=== PATIENT | female | born 1980 | race Caucasian/White ===

== ENCOUNTER 2019-12-08 06:35 | Day surgery (SDC) | payer OTHER ==
[~2019-12-08] VITALS: Ht 167.6 cm; Wt 67.0 kg
[2019-12-08 07:10] VITALS: BP 108/74
[2019-12-08] MEDS ORDERED: CHLORHEXIDINE 15 ML UDC MM STA (07:17)
[2019-12-08] MEDS ORDERED: LACTATED RINGERS 1,000 ML IV SCH (07:18)
[2019-12-08] MEDS ORDERED: IBUP-1223 PO (07:21)
[2019-12-08] MEDS ORDERED: DOCU100C33 PO (07:21)
[2019-12-08] MEDS ORDERED: SCOPOLAMINE 1MG PATCH TD ONE (07:32)
[2019-12-08] MEDS ORDERED: BUPIVACAINE/PF 0.25% ONE (07:32)
[2019-12-08 07:34] LABS: HCG UR SG 1.024 (1.003-1.030)
[2019-12-08] MEDS ORDERED: DEXAMETHASONE 4 MG/ML, 1ML ONE (07:48)
[2019-12-08] MEDS ORDERED: ONDANSETRON 2MG/ML, 2ML ONE (07:48)
[2019-12-08] MEDS ORDERED: KETOROLAC 30 MG/1 ML ONE (07:48)
[2019-12-08] MEDS ORDERED: SUCCINYLCHOLINE 20 MG/ML, 10ML ONE (07:48)
[2019-12-08] MEDS ORDERED: MIDAZOLAM 1 MG/ML, 2ML ONE (07:48)
[2019-12-08] MEDS ORDERED: PROPOFOL 10 MG/ML, 20ML ONE (07:48)
[2019-12-08] MEDS ORDERED: ONDANSETRON 2MG/ML, 2ML IVPush PRN (08:30)
[2019-12-08] MEDS ORDERED: LABETALOL 5MG/ML, 20ML IV PRN (08:30)
[2019-12-08] MEDS ORDERED: hydrALAzine 20 MG/ML, 1ML IV PRN (08:30)
[2019-12-08] MEDS ORDERED: MEPERIDINE/PF 25MG/0.5ML IVPush PRN (08:30)
[2019-12-08] MEDS ORDERED: ALBUTEROL SULFATE 2.5 MG/3 ML NPPB PRN (08:30)
[2019-12-08] MEDS ORDERED: PROMETHAZINE 25 MG/ML, 1ML IV PRN (08:30)
[2019-12-08] MEDS ORDERED: KETOROLAC 30 MG/1 ML IV PRN (08:30)
[2019-12-08] MEDS ORDERED: DIAZEPAM 5 MG/ML, 2ML IV PRN ×2 (08:30)
[2019-12-08] MEDS ORDERED: METOCLOPRAMIDE 5 MG/ML, 2ML IV PRN (08:30)
[2019-12-08] MEDS ORDERED: OXYcodone 5 MG/5 ML ORAL.SOL UDC PO PRN (08:30)
[2019-12-08] MEDS ORDERED: HYDROmorphone 1 MG/ML, 1ML INJ IV PRN (08:30)
[2019-12-08] MEDS ORDERED: ACETAMINOPHEN 650 MG/20.3 ML UDC ONE (08:39)
[2019-12-08] MEDS ORDERED: FENTANYL PF 100 MCG/2ML ONE (08:39)
[2019-12-08] MEDS: FENTANYL PF 100 MCG/2ML IV PRN ×2 (08:43→08:57)
[2019-12-08] MEDS ORDERED: ACETAMINOPHEN 650 MG/20.3 ML UDC PO PRN (09:00)
== END 2019-12-08 10:40 | disposition home or self-care (01) ==
LOC: OUT 06:35
PROVIDERS: ATTEND Surgery
DX: N63.10 Unspecified lump in the right breast, unspecified quadrant (principal); Z11.59 Encounter for screening for other viral diseases; D24.1 Benign neoplasm of right breast; Z72.89 Other problems related to lifestyle; Z79.899 Other long term (current) drug therapy
CPT/HCPCS: 19120; 81025; 87635; 88305; J0330; J1100; J1885; J2250; J2405; J2704; J3010; J3490; J7120

== ENCOUNTER 2020-02-20 09:42 | Day surgery (SDC) | payer OTHER ==
[~2020-02-20] VITALS: Ht 167.6 cm; Wt 65.3 kg
[~2020-02-20 09:42] MED LIST: BUPIVACAINE/PF 0.5% ONE; DOCU100C33 PO; EPINEPHRINE 1 MG/ML, 1ML ONE; IBUP-1223 PO; LIDOCAINE JELLY 2%, 30GM ONE; OMEP20TA62 PO; SILVER SULF. CRM 1% , 25GM ONE
[2020-02-20 10:04] VITALS: BP 113/78
[2020-02-20] MEDS ORDERED: LACTATED RINGERS 1,000 ML IV SCH (10:04)
[2020-02-20] MEDS ORDERED: CHLORHEXIDINE 15 ML UDC ONE (10:07)
[2020-02-20] MEDS ORDERED: CHLORHEXIDINE 15 ML UDC MM ONE (10:30)
[2020-02-20 10:51] LABS: HCG UR SG 1.023 (1.003-1.030)
[2020-02-20] MEDS ORDERED: BUPIVACAINE LIPOSOME/PF 10ML INFIL ONE ×2 (11:05→13:14)
[2020-02-20] MEDS ORDERED: MEPERIDINE/PF 25MG/0.5ML IVPush PRN (12:00)
[2020-02-20] MEDS ORDERED: FENTANYL PF 100 MCG/2ML IV PRN (12:00)
[2020-02-20] MEDS ORDERED: HYDROcodone/APAP 7.5-325MG/15ML UDC PO PRN (12:00)
[2020-02-20] MEDS ORDERED: KETOROLAC 30 MG/1 ML IVPush PRN (12:00)
[2020-02-20] MEDS ORDERED: PROMETHAZINE 25 MG/ML, 1ML IVPush PRN (12:00)
[2020-02-20] MEDS ORDERED: HYDROmorphone 1 MG/ML, 1ML INJ IVPush PRN (12:00)
[2020-02-20] MEDS ORDERED: OXYcodone 5 MG/5 ML ORAL.SOL UDC PO PRN (12:00)
[2020-02-20] MEDS ORDERED: SCOPOLAMINE 1MG PATCH TD STA (12:40)
[2020-02-20] MEDS ORDERED: SCOPOLAMINE 1MG PATCH TD ONE (12:42)
[2020-02-20] MEDS ORDERED: FENTANYL PF 100 MCG/2ML ONE (12:45)
[2020-02-20] MEDS ORDERED: MIDAZOLAM 1 MG/ML, 2ML ONE (12:46)
[2020-02-20] MEDS ORDERED: DEXAMETHASONE 4 MG/ML, 1ML ONE (12:54)
[2020-02-20] MEDS ORDERED: ONDANSETRON 2MG/ML, 2ML ONE (12:54)
[2020-02-20] MEDS ORDERED: ROCURONIUM 10 MG/ML,10ML ONE (12:54)
[2020-02-20] MEDS ORDERED: PROPOFOL 10 MG/ML, 20ML ONE (12:54)
[2020-02-20] MEDS ORDERED: SUCCINYLCHOLINE 20 MG/ML, 10ML ONE (12:54)
[2020-02-20] MEDS ORDERED: CEFAZOLIN 1,000 MG ONE (12:54)
[2020-02-20] MEDS ORDERED: BUPIVACAINE 0.25% ONE (13:02)
[2020-02-20] MEDS ORDERED: LIDOCAINE JELLY 2%, 30GM TP ONE (13:14)
[2020-02-20] MEDS ORDERED: BUPIVACAINE 0.25% INFIL ONE (13:14)
[2020-02-20] MEDS ORDERED: SILVER SULF. CRM 1% , 25GM TP ONE (13:14)
== END 2020-02-20 16:00 | disposition home or self-care (01) ==
LOC: OUT 09:42
PROVIDERS: ATTEND Surgery
DX: K64.8 Other hemorrhoids (principal); Z20.828 Contact with and (suspected) exposure to other viral communicable diseases; K64.4 Residual hemorrhoidal skin tags; K59.09 Other constipation; Z79.899 Other long term (current) drug therapy; Z90.49 Acquired absence of other specified parts of digestive tract; Z98.890 Other specified postprocedural states
CPT/HCPCS: 46320; 46999; 81025; 87635; 88304; J0171; J0330; J0690; J1100; J2250; J2405; J2704; J3010; J3490; J7120